=== PATIENT | female | born 1975 | race Caucasian/White ===

== ENCOUNTER 2023-03-04 16:56 | Inpatient (IN) | payer BC, SELFPAY ==
[2023-03-04] VITALS (40 sets, daily range): BP systolic 133–204; BP diastolic 80–157; PULSE 95–119; RESP 17–33; TEMP 36.6–37; O2SAT 91–100; BMI 43.9
--- NOTE | 2023-03-04 17:16 | XRR_ITS ---
PROCEDURE INFORMATION: Exam: XR Chest Exam date and time: 03/04/2023 5:33 PM Age: 47 years old Clinical indication: Shortness of breath; Additional info: SOB TECHNIQUE: Imaging protocol: Radiologic exam of the chest. Views: 1 view. COMPARISON: CR XR chest 1V [id number] 04/14/2019 5:46 AM FINDINGS: Lungs: New small streaky right basilar opacity which is likely atelectasis however follow-up should be obtained if there is a concern for developing pneumonia. One or 2 calcified pulmonary granulomas are again noted in the right upper lung zone, unchanged. Pleural spaces: Unremarkable. No pleural effusion. No pneumothorax. Heart/Mediastinum: No cardiomegaly. Bones/joints: No acute findings. XR/XR chest 1V portable [id number] IMPRESSION: Small right basilar streaky opacity. See discussion above.
--- NOTE | 2023-03-04 17:19 | W.ED.SOB ---
HPI - SOB/Dyspnea General: Chief Complaint: Shortness of Breath/Dyspnea Stated Complaint: RESPIRATORY DISTRESS Time Seen by Provider: 03/04/23 17:00 Source: patient and EMS Mode of arrival: EMS Limitations: no limitations History of Present Illness: HPI Narrative: 47-year-old female who has a long history of COPD she states that over the last 3 days she been having worsening shortness of breath along with wheezing states today got much worse went to clinic was hypoxic she is on 3 L of oxygen currently she did receive albuterol and Solu-Medrol in route she still has wheezing along with some tachypnea states she has pain in her chest 2 she feels like from her cough and breathing she denies any vomiting or diarrhea Associated symptoms: Deny abdominal pain, chest pain, fever(s), nausea or vomiting Review of Systems Const: Denies: fever(s), chills, body aches or change in appetite Eyes: Denies: eye discomfort ENMT: Denies: throat pain or dental pain Card: Denies: chest pain Resp: Reports: dyspnea, non-productive cough and wheezing GI: Denies: abdominal pain, nausea, vomiting or diarrhea : Denies: dysuria Musc: Denies: neck pain or back pain Skin/Breast: Denies: rash Neuro: Denies: headache(s) Psych: Denies: depression Khoa/Lymph: Denies: easy bruising All/Imm: Denies: urticaria PFSH ED PFSH: Medical History (Updated 03/04/23 @ 19:39 by Smooth Lazo MD) COPD (chronic obstructive pulmonary disease) Social History (Updated 03/04/23 @ 17:19 by Smooth Lazo MD) Substance/Drug Use: never Physical Exam Const: COMMON NORMALS: patient oriented x3 GENERAL APPEARANCE: in distress and ill appearing HENMT: COMMON NORMALS: normocephalic and atraumatic HEAD & SCALP: normocephalic and atraumatic Eye: COMMON NORMALS: Equal, round and reactive pupils present and EOMs intact bilaterally PUPIL: Yes Equal, round and reactive pupils present Neck/C-Spine: COMMON NORMALS: full ROM and supple Chest: COMMONS NORMALS: normal inspection of the chest and normal palpation of entire chest wall Resp: EFFORT & INSPECTION: Yes tachypneic, Yes respiratory distress and Yes labored AUSCULTATION: wheezes Cardio: COMMON NORMALS: regular rhythm and No murmurs present (Cardio) RATE: tachycardic RHYTHM: regular rhythm GI: COMMON NORMALS: Normal to inspection, nondistended, normoactive bowel sounds present, Soft to palpation, non-tender and no masses PALPATION: Yes Soft to palpation Extremity: COMMON NORMALS: normal to inspection and full ROM Neuro: COMMON NORMALS: patient oriented x3, moves all extremities and no focal motor deficits Psych: COMMON NORMALS: mental status grossly normal, Normal thought process present and cooperative THOUGHT PROCESS: Normal thought process present Skin: COMMON NORMALS: no rashes or lesions noted and no wounds GENERAL SKIN EXAM: no rashes or lesions noted Course Vital Signs: Vital signs: Vital Signs Temperature 98.6 F 03/04/23 17:03 Pulse Rate 100 03/04/23 18:40 Respiratory Rate 25 H 03/04/23 18:40 Blood Pressure 204/157 03/04/23 18:40 Pulse Oximetry 95 03/04/23 18:40 Oxygen Delivery Me thod Nasal Cannula 03/04/23 18:40 Oxygen Flow Rate 2 03/04/23 18:40 MDM - SOB/Dyspnea Medical Decision Making Patient presents for COPD exacerbation along with hypoxia she has a possible right-sided pneumonia as well. Patient given breathing treatments she has had some slight improvement but still requiring oxygen I spoke to the hospitalist will admit at this time. Lab Data 03/04/23 17:20 03/04/23 17:20 Labs/Radiology: Radiology Impressions Chest X-Ray 03/04/23 17:16 IMPRESSION: Small right basilar streaky opacity. See discussion above. Laboratory Results WBC 15.1 10^3/uL (4.0-10.0) H 03/04/23 17:20 RBC 5.29 10^6/uL (4.1-5.3) 03/04/23 17:20 Hgb 15.8 g/dL (11.5-15.3) H 03/04/23 17:20 Hct 48.2 % (37.0-47.0) H 03/04/23 17:20 MCV 91.1 fl (81-99) 03/04/23 17:20 MCH 29.9 pg (28.0-34.0) 03/04/23 17:20 MCHC 32.8 g/dL (30.0-36.0) 03/04/23 17:20 RDW 12.7 % (12.1-15.1) 03/04/23 17:20 Plt Count 380 10^3/cmm (130-400) 03/04/23 17:20 MPV 10.2 fL (7.4-10.4) 03/04/23 17:20 Neut % (Auto) 66.6 % 03/04/23 17:20 Lymph % (Auto) 17.6 % 03/04/23 17:20 [place] % (Auto) 5.3 % 03/04/23 17:20 Eos % (Auto) 9.7 % 03/04/23 17:20 Baso % (Auto) 0.5 % 03/04/23: Neut # (Auto) 10.03 10^3/uL (1.8-7.7) H 03/04/23 17:20 Lymph # (Auto) 2.7 10^3/uL (0.8-4.8) 03/04/23 17:20 [place] # (Auto) 0.8 10^3/uL (0.2-0.9) 03/04/23 17:20 Eos # (Auto) 1.5 10^3/uL (0.0-0.8) H 03/04/23 17:20 Baso # (Auto) 0.1 10^3/uL (0.0-0.1) 03/04/23 17:20 Nucleated RBC % (auto) 0 % 03/04/23: Nucleated RBCs # 0.0 /100WBC 03/04/23 17: Specimen Type Arterial 03/04/23 17:44 Sample Site Radial, left 03/04/23 17:44 ABG pH 7.37 (7.35-7.45) 03/04/23 17:44 ABG pCO2 38.6 mmHg (35-45) 03/04/23 17:44 ABG pO2 69.0 mmHg (80.0-100.0) L 03/04/23 17:44 ABG HCO3 22.1 mmol/L (22-26) 03/04/23:44 ABG Base Excess -2.9 mmol/L (-2.0-2.0) L 03/04/23 17:44 Kenny Test Pos 03/04/23 17:44 Hematocrit 51.0 % (37-47) H 03/04/23 17:44 Hgb O2 Saturation 93.2 % (95-100) L 03/04/23 17:44 Carboxyhemoglobin 1.4 %THgb (0.4-20.1) 03/04/23 17:44 Methemoglobin 0.6 % (0.4-1.5) 03/04/23 17:44 Total Hemoglobin 16.7 g/dL (12-16) H 03/04/23 17:44 O2 Delivery Device Nc 03/04/23 17:44 O2 Liters/Min 3.0 % 03/04/23 17:44 Patient Registration Representative ID [email or web address] 03/04/23 17:44 Sodium 133 mmol/L (136-145) L 03/04/23 17:20 Potassium 4.4 mmol/L (3.5-5.1) 03/04/23 17:20 Chloride 98 mmol/L (98-107) 03/04/23 17:20 Carbon Dioxide 23 mmol/L (22-29) 03/04/23 17:20 Anion Gap 16.4 (5-19) 03/04/23 17:20 BUN 7 mg/dL (6-20) 03/04/23 17:20 Creatinine 0.5 mg/dL (0.5-0.9) 03/04/23 17:20 GFR Calculation 132.8 mL/min (90-130) H 03/04/23 17:20 Glucose 90 mg/dL (65-115) 03/04/23 17:20 Calculated Osmolality 274 mOsm/kg (285-295) L 03/04/23 17:20 Calcium 9.2 mg/dL (8.5-10.5) 03/04/23 17:20 Total Bilirubin 0.7 mg/dL (0.15-1.2) 03/04/23 17:20 AST 22 U/L (0-32) 03/04/23 17:20 ALT 20 U/L (0-33) 03/04/23 17:20 Alkaline Phosphatase 97 U/L (35-105) 03/04/23 17:20 Troponin T Baseline 8 ng/L (0-10) 03/04/23 17:20 NT-Pro-B Natriuret Pep 144 pg/mL (0-125) H 03/04/23 17:20 Total Protein 6.9 g/dL (6.6-8.7) 03/04/23 17:20 Albumin 4.3 g/dL (3.5-5.2) 03/04/23 17:20 Globulin 2.6 g/dL (1.3-4.6) 03/04/23 17:20 Influenza Type A Ag negative (Negative) 03/04/23 17:23 Influenza Type B Ag negative (Negative) 03/04/23 17:23 SARS-CoV-2 Ag (Rapid) negative (Negative) 03/04/23 17:23 EKG Data EKG 1: I personally reviewed and interpreted this EKG as follows: EKG Interpretation Date: 03/04/23 EKG interpretation time: 17:28 Interpretation: sinus tach hr [address] or t wave abnormalities qrs 78 qtc 410 Discharge Plan Discharge Patient Disposition: Admitted As Inpatient Clinical Impression: Acute exacerbation of chronic obstructive airways disease, Acute respiratory failure with hypoxia Referrals: Debora Lucero RN [Primary Care Provider] - Coding Level of Care Code ED Tax Assessor for Chg Jarad
--- NOTE | 2023-03-04 17:22 | ECG_ITS ---
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 Measurements Intervals [place] Rate: 104 P: 46 AR: 136 QRS: 52 QRSD: 78 T: 54 QT: 350 QTc: 461 Interpretive Statements SINUS TACHYCARDIA SEPTAL MYOCARDIAL INFARCTION , PROBABLY OLD [40+ ms Q WAVE IN V1/V2] Compared to ECG 04/12/2019 02:23:30 Myocardial infarct finding now present Electronically Signed On 03-05-2023 15:04:02 CDT by Kaleb Guido M.D. [email or web address] [email or web address] mary[facility] [place] [facility].[email or web address]/store/OM/[id number]
[2023-03-04 17:41] LABS: Basophils # 0.1 10^3/uL (0.0-0.1); Basophils % 0.5 %; Eosinophils # 1.5 10^3/uL (0.0-0.8); Eosinophils % 9.7 %; Hematocrit 48.2 % (37.0-47.0); Hemoglobin 15.8 g/dL (11.5-15.3); Lymphocytes # 2.7 10^3/uL (0.8-4.8); Lymphocytes % 17.6 %; Mean Corpuscular HGB Conc 32.8 g/dL (30.0-36.0); Mean Corpuscular Hemoglobin 29.9 pg (28.0-34.0); Mean Corpuscular Volume 91.1 fl (81-99); Mean Platelet Volume 10.2 fL (7.4-10.4); Monocytes # 0.8 10^3/uL (0.2-0.9); Monocytes % 5.3 %; Neutrophils # 10.03 10^3/uL (1.8-7.7); Neutrophils % 66.6 %; Nucleated Red Blood Cells % 0 %; Platelet Count 380 10^3/cmm (130-400); Red Blood Count 5.29 10^6/uL (4.1-5.3); Red Cell Distribution Width 12.7 % (12.1-15.1); White Blood Count 15.1 10^3/uL (4.0-10.0)
[2023-03-04 17:56] LABS: ABG PCO2 38.6 mmHg (35-45); ABG PH Result 7.37 (7.35-7.45); Base Excess ABG -2.9 mmol/L (-2.0-2.0); Blood Gas Allen Test Pos; Blood Gas Sample Site Radial, left; Blood Gas Sample Type Arterial; Carboxyhemoglobin 1.4 %THgb (0.4-20.1); HCO3 ABG 22.1 mmol/L (22-26); HGB O2 Sat 93.2 % (95-100); Methemoglobin 0.6 % (0.4-1.5); Oxygen Device NC; Total Hemoglobin 16.7 g/dL (12-16)
[2023-03-04] MEDS: albuterol 2.5 mg/3 mL Neb 5 MG INHALATION (17:58)
[2023-03-04] MEDS: ipratropium 0.5 mg/2.5 mL Neb INHALATION (17:59)
[2023-03-04 18:02] LABS: Troponin(5th) Baseline 8 ng/L (0-10)
[2023-03-04 18:07] LABS: Alanine Aminotransferase 20 U/L (0-33); Albumin Level 4.3 g/dL (3.5-5.2); Alkaline Phosphatase 97 U/L (35-105); Aspartate Amino Transferase 22 U/L (0-32); Blood Urea Nitrogen 7 mg/dL (6-20); Calcium 9.2 mg/dL (8.5-10.5); Carbon Dioxide 23 mmol/L (22-29); Chloride 98 mmol/L (98-107); Globulin 2.6 g/dL (1.3-4.6); Glomerular Filtration Rate 132.8 mL/min (90-130); Glucose 90 mg/dL (65-115); NT Pro B Type Natriuretic Pept 144 pg/mL (0-125); Osmolality Calculated 274 mOsm/kg (285-295); Sodium 133 mmol/L (136-145); Total Bilirubin 0.7 mg/dL (0.15-1.2); Total Protein 6.9 g/dL (6.6-8.7)
[2023-03-04 18:09] LABS: SARS Covid-2 Antigen negative (Negative)
[2023-03-04 18:10] LABS: Influenza A by IFA negative (Negative); Influenza B by IFA negative (Negative)
[2023-03-04] MEDS: cefTRIAXone 1,000 MG in sodium chloride 0.9% (plus) 50 ML 100 MG IV (18:24)
[2023-03-04 18:33] LABS: Anion Gap 16.4 (5-19); Potassium 4.4 mmol/L (3.5-5.1)
[2023-03-04] MEDS: hyDRALAzine 20 mg/mL INJ 1 mL 10 MG IVP (19:04)
[2023-03-04] MEDS: azithromycin 500 MG in sodium chloride 0.9% 250 ML 250 MG IV (19:04)
--- NOTE | 2023-03-04 19:52 | P.HP_ITS ---
Providers/Chief Complaint Primary Care Provider: Debora Lucero Chief Complaint: RESPIRATORY DISTRESS History of Present Illness Crystal Leach is a 47 year old female with a past medical history of COPD, obesity, smoking history, hypertension who presents [facility] for complaints of wheezing, shortness of breath, fatigue, malaise for the last few days. Patient tells me that she is smoking, for the last 2 days she has been feeling increasingly short of breath, having wheezing, fatigue, malaise, no fevers, nonproductive cough. Over the last day her shortness of breath and wheezing has significantly worsened, no hemoptysis, no calf pain, no calf swelling, no recent surgeries. Review of Systems Const: Denies: fever(s) Eyes: Denies: change in vision Card: Denies: chest pain Resp: Reports: dyspnea and non-productive cough GI: Denies: abdominal pain : Denies: flank pain or difficulty voiding Musc: Denies: back pain Skin/Breast: Denies: rash Neuro: Denies: headache(s) Endo: Denies: polyuria Medications/Allergies Allergies Allergy/AdvReac Type Severity Reaction Status Date / Time aspirin Allergy ALGY-Hives Verified 03/04/23 17:17 Penicillins Allergy ALGY-Hives Verified 03/04/23 17:17 PFSH Acute PFSH: Medical History (Updated 03/04/23 @ 20:00 by Killian Hunter MD) COPD (chronic obstructive pulmonary disease) Obesity Surgical History (Updated 03/04/23 @ 19:55 by Killian Hunter MD) History of cholecystectomy Family History (Updated 03/04/23 @ 19:55 by Killian Hunter MD) Mother CAD (coronary artery disease) Lung cancer Father CAD (coronary artery disease) Pancreatic cancer Social History (Updated 03/04/23 @ 19:55 by Killian Hunter MD) Alcohol intake: never Vitals/I&O/Wt Last Vital Signs Temp 98.6 F 03/04/23 17:03 Pulse 100 03/04/23 18:40 Resp 25 H 03/04/23 18:40 BP 204/157 03/04/23 18:40 Pulse Ox 95 03/04/23 18:40 O2 Del Method Nasal Cannula 03/04/23 18:40 O2 Flow Rate 2 03/04/23 18:40 03/04/23 03/04/23 03/04/23 06:59 14:59 22:59 Intake Total 50 / 50 Balance 50 / 50 Weight last 48 hrs Weight 108.862 kg Physical Exam Const: COMMON NORMALS: no acute distress and patient oriented x3 HENMT: COMMON NORMALS: normocephalic Eye: COMMON NORMALS: Equal, round and reactive pupils present and EOMs intact bilaterally Neck/C-Spine: COMMON NORMALS: full ROM and no lymphadenopathy Lymph: LYMPHATIC: no lymphadenopathy noted Resp: COMMON NORMALS: normal respiratory effort, No retractions, No use of accessory muscles and clear to auscultation bilaterally AUSCULTATION: wheezes throughout Cardio: COMMON NORMALS: regular rhythm, S1 normal heart sound present and S2 normal heart sound present RATE: tachycardic RHYTHM: regular rhythm HEART SOUNDS: S1 normal heart sound present and S2 normal heart sound present GI: COMMON NORMALS: Normal to inspection, nondistended, normoactive bowel sounds present, Soft to palpation and non-tender : COMMON NORMALS: Yes no CVA tenderness Extremity: COMMON NORMALS: no pedal edema Neuro: COMMON NORMALS: patient oriented x3, CN's II-XII intact bilaterally, moves all extremities and no focal motor deficits Psych: COMMON NORMALS: mental status grossly normal Data 03/04/23 17:20 03/04/23 17:20 Micro: Microbiology 03/04/23 18:07 Blood Culture - Preliminary Blood SPECIMEN COLLECTED 03/04/23 18:13 Blood Culture - Preliminary Blood SPECIMEN COLLECTED Other data: I personally reviewed chest x-ray, small right basilar opacity concerning for pneumonia Personally reviewed EKG, sinus tachycardia, no acute ST-T wave changes A&P Assessment and plan (1) Acute exacerbation of chronic obstructive airways disease: (2) Acute respiratory failure with hypoxia: (3) COPD (chronic obstructive pulmonary disease): (4) Hypertensive urgency: (5) Pneumonia: (6) Smoker: (7) Sinus tachycardia: Plan Acute hypoxic respiratory failure -Secondary to pneumonia -COPD exacerbation Plan -Admit to general medical floors -DuoNeb treatments -Budesonide -Solu-Medrol -Oxygen therapy -Respiratory therapy eval -Monitor respiratory status closely -Telemetry monitoring -Continue Rocephin, azithromycin Pneumonia -Sputum cultures, blood cultures COPD exacerbation Active smoker, smoking cessation counseling Sinus tachycardia, serial EKGs, serial troponins, telemetry monitoring Hypertensive urgency -Improved with hydralazine -Norvasc 10 mg once daily Obesity Full code Lovenox for DVT prophylaxis Attestations Medical Necessity Statement*: Patient requires hospitalization, inpatient, greater than 2 midnights, for COPD exacerbation, pneumonia, acute respiratory failure, hypertensive urgency Diagnoses Acute exacerbation of chronic obstructive airways disease J44.1 Acute respiratory failure with hypoxia J96.01 COPD (chronic obstructive pulmonary disease) J44.9 Hypertensive urgency I16.0 Pneumonia J18.9 Smoker F17.200 Sinus tachycardia R00.0
--- NOTE | 2023-03-04 20:37 | PC.NURSE ---
Expiratory wheezing noted upon anterior and posterior auscultation. Patient on 3L nasal cannula and states that wheezing/shortness of breath is her baseline. Respiratory was contacted for breathing treatment.
[2023-03-04 21:05] LABS: D Dimer 0.34 ug/mIFEU (0-0.59)
[2023-03-04 21:22] LABS: Thyroid Stimulating Hormone 0.86 uIU/mL (0.27-4.20)
[2023-03-04 21:24] LABS: Estmated Average Glucose 111; Hemoglobin A1C 5.5 % (4.0-6.0)
[2023-03-04] MEDS: pantoprazole 40 mg SDV IVP (23:04)
[2023-03-04] MEDS: enoxaparin 40 mg/0.4 mL Syringe SUBCUT (23:04)
[2023-03-04] MEDS: amlodipine 10 mg Tablet PO (23:05)
[2023-03-04 23:32] LABS: Troponin 5 6HR Delta -2 ng/L (0-12)
[2023-03-04] MEDS: ipratropium-albuterol 3 mL Neb INHALATION (23:42)
[2023-03-04] MEDS: budesonide 0.5 mg/2 mL Neb INHALATION (23:42)
[2023-03-05] VITALS (19 sets, daily range): BP systolic 101–139; BP diastolic 62–98; PULSE 98–110; RESP 18–25; TEMP 36.6–36.8; O2SAT 93–98
[2023-03-05 06:00] LABS: Basophils % 0.1 %; Hematocrit 49.7 % (37.0-47.0); Hemoglobin 16.3 g/dL (11.5-15.3); Lymphocytes # 1.3 10^3/uL (0.8-4.8); Lymphocytes % 15.2 %; Mean Corpuscular HGB Conc 32.8 g/dL (30.0-36.0); Mean Corpuscular Hemoglobin 29.9 pg (28.0-34.0); Mean Corpuscular Volume 91.2 fl (81-99); Mean Platelet Volume 10.8 fL (7.4-10.4); Monocytes # 0.1 10^3/uL (0.2-0.9); Monocytes % 1.2 %; Neutrophils # 6.94 10^3/uL (1.8-7.7); Neutrophils % 83.3 %; Nucleated Red Blood Cells % 0 %; Platelet Count 407 10^3/cmm (130-400); Red Blood Count 5.45 10^6/uL (4.1-5.3); Red Cell Distribution Width 12.7 % (12.1-15.1); White Blood Count 8.3 10^3/uL (4.0-10.0)
[2023-03-05 06:14] LABS: Anion Gap 17.8 (5-19); Blood Urea Nitrogen 11 mg/dL (6-20); C Reactive Protein 14.9 mg/L (0.0-4.9); Calcium 9.5 mg/dL (8.5-10.5); Carbon Dioxide 22 mmol/L (22-29); Chloride 100 mmol/L (98-107); Glomerular Filtration Rate 132.8 mL/min (90-130); Glucose 132 mg/dL (65-115); Osmolality Calculated 281 mOsm/kg (285-295); Potassium 4.8 mmol/L (3.5-5.1); Sodium 135 mmol/L (136-145)
[2023-03-05 06:29] LABS: Slide Review Slide Review Perform
[2023-03-05] MEDS: ipratropium-albuterol 3 mL Neb INHALATION ×4 (07:33→20:45)
[2023-03-05] MEDS: budesonide 0.5 mg/2 mL Neb INHALATION ×2 (07:34→20:44)
[2023-03-05] MEDS: amlodipine 10 mg Tablet PO (08:15)
[2023-03-05] MEDS: acetaminophen 325 mg Tablet 650 MG PO (08:17)
[2023-03-05] MEDS: albuterol 2.5 mg/3 mL Neb INHALATION (14:01)
--- NOTE | 2023-03-05 14:17 | P.PN_ITS ---
Subjective Subjective: Continues to have significant wheezing today. She is also having bouts of cough which are leading to chest discomfort. On examination today she has diffuse bilateral wheezing not relieved by DuoNeb inhalation that she had around an hour ago. Medications: Reviewed: Yes Vitals/I&O/Wt Last Vital Signs Temp 98 F 03/05/23 12:00 Pulse 105 H 03/05/23 14:01 Resp 22 H 03/05/23 14:01 BP 130/84 03/05/23 12:00 Pulse Ox 95 03/05/23 14:01 O2 Del Method Nasal Cannula 03/05/23 14:01 O2 Flow Rate 3 03/05/23 14:01 03/04/23 03/05/23 03/05/23 22:59 06:59 14:59 Intake Total 50 / 50 730 / 780 Output Total 1400 / 1400 Balance 50 / 50 730 / 780 -1400 / -1400 Weight last 48 hrs Weight 109.061 kg Weight 108.862 kg Physical Exam Narrative: General: No acute distress, AO x3 HEENT: PERRLA, pupils bilaterally equal and reactive, pallors not present Chest: Bilateral diffuse wheezing to auscultation CVS: S1-S2 regular, no murmurs, no tachycardia, no gallops, no rubs Abdomen: Soft, nontender, no organomegaly, bowel sounds present Neuro: No focal deficits, no facial deformity, AO x3, power 5/5 in all limbs Data 03/05/23 05:40 03/05/23 05:40 Micro: Microbiology 03/05/23 11:25 Bacterial Antigens - Final Urine,Clean Catch A&P Assessment and plan (1) Acute exacerbation of chronic obstructive airways disease: (2) Acute respiratory failure with hypoxia: (3) COPD (chronic obstructive pulmonary disease): (4) Hypertensive urgency: (5) Pneumonia: (6) Smoker: (7) Sinus tachycardia: Plan Acute hypoxic respiratory failure -Secondary to pneumonia and COPD exacerbation Plan -Admit to general medical floors -scheduled DuoNeb every 4 hrs and Budesonide BID -Solu-Medrol increase to 60 mg iv every 8 hrs from every 40mg 8 hrs -Oxygen therapy -Monitor respiratory status closely -Telemetry monitoring -Continue Rocephin, azithromycin - add tessalon pearls and acetaminophen/codeine for cough suppression -magnesium 1 g iv x1 now Low suspicion for PE given negative D-dimer Pneumonia -Sputum cultures, blood cultures pending , currently unable to expectorate COPD exacerbation: as above Active smoker, smoking cessation counseling Sinus tachycardia, serial EKGs, serial troponins, telemetry monitoring Hypertensive urgency -Improved with hydralazine -Norvasc 10 mg once daily Obesity Full code Lovenox for DVT prophylaxis Attestations Medical Necessity Statement*: Diffuse wheezing bilaterally, needs continuous [id number] nebulization, increase IV steroids, add magnesium and cough suppressants. Coding Level of Care Code Acute Code for Chg Fwd Moderate MDM includes number and complexity of problems actively addressed during encounter, amount and/or complexity of data reviewed/ordered and described risk of complication, morbidity or mortality of management as d ocumented Diagnoses Acute exacerbation of chronic obstructive airways disease J44.1 Acute respiratory failure with hypoxia J96.01 COPD (chronic obstructive pulmonary disease) J44.9 Hypertensive urgency I16.0 Pneumonia J18.9 Smoker F17.200 Sinus tachycardia R00.0
[2023-03-05] MEDS: guaiFENesin-dextromethorphan UDC 10 mL 5 ML PO ×2 (15:26→21:55)
[2023-03-05] MEDS: benzonatate 100 mg Capsule PO (15:26)
[2023-03-05] MEDS: sennosides-docusate Tablet 1 TAB PO (17:32)
[2023-03-05] MEDS: montelukast sodium 10 mg Tablet PO (17:32)
[2023-03-05] MEDS: cefTRIAXone 1,000 MG in sodium chloride 0.9% (plus) 50 ML 100 MG IV (17:32)
[2023-03-05] MEDS: azithromycin 500 MG in sodium chloride 0.9% 250 ML 250 MG IV (18:46)
[2023-03-05] MEDS: enoxaparin 40 mg/0.4 mL Syringe SUBCUT (21:52)
[2023-03-05] MEDS: pantoprazole 40 mg SDV IVP (22:07)
[2023-03-06] VITALS (20 sets, daily range): BP systolic 108–136; BP diastolic 62–84; PULSE 91–116; RESP 15–22; TEMP 36.4–36.8; O2SAT 90–97
[2023-03-06] MEDS: ipratropium-albuterol 3 mL Neb INHALATION ×5 (00:55→20:04)
[2023-03-06] MEDS: guaiFENesin-dextromethorphan UDC 10 mL 5 ML PO (05:35)
[2023-03-06 05:50] LABS: Basophils % 0.1 %; Hematocrit 50.3 % (37.0-47.0); Hemoglobin 16.5 g/dL (11.5-15.3); Lymphocytes # 1.6 10^3/uL (0.8-4.8); Lymphocytes % 8.1 %; Mean Corpuscular HGB Conc 32.8 g/dL (30.0-36.0); Mean Corpuscular Hemoglobin 30.3 pg (28.0-34.0); Mean Corpuscular Volume 92.5 fl (81-99); Mean Platelet Volume 10.3 fL (7.4-10.4); Monocytes # 0.2 10^3/uL (0.2-0.9); Neutrophils # 17.81 10^3/uL (1.8-7.7); Neutrophils % 90.2 %; Nucleated Red Blood Cells % 0 %; Platelet Count 441 10^3/cmm (130-400); Red Blood Count 5.44 10^6/uL (4.1-5.3); Red Cell Distribution Width 13.2 % (12.1-15.1); White Blood Count 19.7 10^3/uL (4.0-10.0)
[2023-03-06 06:14] LABS: Alanine Aminotransferase 17 U/L (0-33); Albumin Level 4.3 g/dL (3.5-5.2); Alkaline Phosphatase 81 U/L (35-105); Anion Gap 16.8 (5-19); Aspartate Amino Transferase 9 U/L (0-32); Blood Urea Nitrogen 19 mg/dL (6-20); C Reactive Protein 6.9 mg/L (0.0-4.9); Calcium 9.9 mg/dL (8.5-10.5); Carbon Dioxide 24 mmol/L (22-29); Chloride 100 mmol/L (98-107); Globulin 3.3 g/dL (1.3-4.6); Glomerular Filtration Rate 90.1 mL/min (90-130); Glucose 141 mg/dL (65-115); Magnesium 2.1 mg/dL (1.7-2.3); Osmolality Calculated 287 mOsm/kg (285-295); Potassium 4.8 mmol/L (3.5-5.1); Sodium 136 mmol/L (136-145); Total Bilirubin 0.2 mg/dL (0.15-1.2); Total Protein 7.6 g/dL (6.6-8.7)
[2023-03-06] MEDS: amlodipine 10 mg Tablet PO (08:24)
[2023-03-06] MEDS: sennosides-docusate Tablet 1 TAB PO ×2 (08:24→20:15)
[2023-03-06] MEDS: benzonatate 100 mg Capsule PO (15:38)
--- NOTE | 2023-03-06 17:37 | CTR_ITS ---
PROCEDURE INFORMATION: Exam: CTA Chest With Contrast Exam date and time: 03/06/2023 6:53 PM Age: 47 years old Clinical indication: Cough and hyperventilation and shortness of breath and tachypnea and wheezing; Smoker's cough; Additional info: Evalute for pe TECHNIQUE: Imaging protocol: Computed tomographic angiography of the chest with contrast. Sagittal and coronal reformatted images were created and reviewed. 3D rendering (Not supervised by radiologist): MIP and/or 3D reconstructed images were created by the technologist. Radiation optimization: All CT scans at this facility use at least one of these dose optimization techniques: automated exposure control; mA and/or kV adjustment per patient size (includes targeted exams where dose is matched to clinical indication); or iterative reconstruction. Contrast material: OMNI 350; Contrast volume: 100 ml; Contrast route: INTRAVENOUS (IV); REPORTING DATA: Count of CT and Cardiac NM exams in prior 12 months: This patient has received 0 known CTs and 0 known cardiac nuclear medicine studies in the 12 months prior to the current study. COMPARISON: CR (CHEST, ) 03/04/2023 5:33 PM RADIATION DOSE METRICS: Total DLP (mGy-cm): 913.44 FINDINGS: Pulmonary arteries: Evaluation of peripheral pulmonary arteries is limited secondary to the phase of contrast enhancement. No filling defects in the central pulmonary arteries to suggest a large pulmonary embolism. Aorta: No evidence for aortic aneurysm or aortic dissection. Trachea: Tracheobronchial structures are patent. Lungs: Lungs are clear bilaterally. No pulmonary parenchymal nodules or masses. Pleural spaces: No pneumothorax. No pleural effusion. Heart: No cardiomegaly. No pericardial effusion. Esophagus: The esophagus is unremarkable. Mediastinal space: No mediastinal hematoma. No pneumomediastinum. Lymph nodes: No lymphadenopathy. Liver: Diffuse, mildly decreased attenuation in the visualized liver. Findings are consistent with mild fatty infiltration. Gallbladder and bile ducts: Patient has had a previous cholecystectomy. No dilatation of the visualized bile ducts. Pancreas: The visualized pancreas is unremarkable. No pancreatic ductal dilatation. Spleen: The visualized spleen is unremarkable. Adrenal glands: The right and left adrenal glands are unremarkable. Kidneys and ureters: The visualized right and left kidneys are unremarkable. Bones/joints: Mild degenerative changes in the visualized spine. Soft tissues: No acute abnormality in the extrathoracic soft tissues. CT/CT angio chest PE protcl [id number] IMPRESSION: 1. Evaluation of peripheral pulmonary arteries is limited secondary to the phase of contrast enhancement. No filling defects in the central pulmonary arteries to suggest a large pulmonary embolism. 2. Mild fatty infiltration of the visualized liver. 3. Lungs are clear bilaterally. 4. Incidental/nonacute findings are listed in the report.
--- NOTE | 2023-03-06 18:12 | ECG_ITS ---
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 Measurements Intervals [place] Rate: 111 P: 50 VA: 136 QRS: 46 QRSD: 78 T: 38 QT: 300 QTc: 409 Interpretive Statements SINUS TACHYCARDIA SEPTAL MYOCARDIAL INFARCTION , PROBABLY OLD [40+ ms Q WAVE IN V1/V2] INTERPRETATION BASED ON A DEFAULT AGE OF 40 YEARS Compared to ECG 03/04/2023 17:28:09 No significant changes Electronically Signed On 03-08-2023 1:29:39 CDT by Chrissy Guevara M.D. [email or web address] grove [email or web address] hospital cleveland east.[employer]/store/NU/[id number] f
[2023-03-06 18:20] LABS: Glucose Point of Care 176 mg/dL (70-110)
[2023-03-06] MEDS: iohexol 350 mg/mL 500 mL Btl (per mL) IV (19:17)
[2023-03-06] MEDS: budesonide 0.5 mg/2 mL Neb INHALATION (20:04)
--- NOTE | 2023-03-06 20:08 | ECG_ITS ---
[facility] Test Date: 2023-03-06 Pat Name: Crystal Leach Department: Room: 259 Gender: Female Outpatient Scheduler: : 1975 Requested By: Killian Hunter Order Number: [id number] Reading MD: Chrissy Guevara M.D. Measurements Intervals [place] Rate: 102 P: 33 GA: 155 QRS: 35 QRSD: 78 T: 31 QT: 327 QTc: 427 Interpretive Statements Sinus tachycardia with a rate of 102 bpm Poor R wave progression. Possible old septal FL. Some nonspecific T wave changes. Electronically Signed On 03-08-2023 1:30:52 CDT by Chrissy Guevara M.D. [email or web address] hospitalNCTech/store/[id number]
--- NOTE | 2023-03-06 20:08 | USCV_ITS ---
Crystal Leach Age: 47 Gender: F : 1975 Exam Date: 03/06/2023 20:32 Ordering Phys: Killian Hunter MD Technologist: AJAY Exam Location: [facility] Indication: No history of DVT per patient. There is no lower extremity edema or erythema. HISTORY: No history of DVT per patient. There is no lower extremity edema or erythema. PROCEDURES: Venous duplex imaging was performed in bilateral lower extremities. The following venous structures were evaluated: common femoral vein, profunda vein, proximal portion of the greater saphenous vein, superficial femoral vein, and the popliteal vein. In addition, the posterior tibial and peroneal veins were evaluated. FINDINGS: Normal 2-D Doppler and augmentation and compressibility throughout the lower extremity venous structures. Additional imaging through the proximal calf veins also reveals no thrombus. Limited evaluation of the greater saphenous vein is patent with no thrombus. CONCLUSIONS No DVT bilateral lower extremities. Dr. Samantha Emery DO (Electronically Signed) Final Date: 07 March 2023 07:37 S
--- NOTE | 2023-03-06 20:09 | PC.NURSE ---
1900 - PT HAS EPISODE OF FEELING LIKE ELEPHANT IS SITTING ON CHEST. BP 155/89 O2 93%/2L/NC P121 BS176. EKG COMPLETED - NO CHANGES FROM PREVIOUS. FINDINGS ARE SINUS TACHYCARDIA AND AEPTAL MYOCARDIAL INFARCTION, PROBABLY OLD. TAKEN TO RADIOLOGY FOR CTA ORDERED BY MARIA VICTORIA. CTA INCONCLUSIVE , X2 ATTEMPTS. NOTIFIED BY TECH THAT IT IS 24HOUR WAIT TO TRY AGAIN. NOTIFIED DR. DE SOUZA. PT IS CALM AT 1999 , LAUGHING WITH STAFF. VS STABLE. NO PAIN. DR. DE SOUZA SAYS TO CONTINUE MONITORING TELE AND NOTIFY OF ANY NEW CHANGES.
[2023-03-06] MEDS: cefTRIAXone 1,000 MG in sodium chloride 0.9% (plus) 50 ML 100 MG IV (20:14)
[2023-03-06] MEDS: montelukast sodium 10 mg Tablet PO (20:15)
[2023-03-06] MEDS: pantoprazole 40 mg SDV IVP (20:15)
[2023-03-06] MEDS: enoxaparin 40 mg/0.4 mL Syringe SUBCUT (20:15)
[2023-03-06 20:44] LABS: D Dimer <= 0.27 ug/mIFEU (0-0.59)
[2023-03-06 21:01] LABS: Troponin(5th) Baseline 6 ng/L (0-10)
[2023-03-06 21:11] LABS: NT Pro B Type Natriuretic Pept 45 pg/mL (0-125)
[2023-03-06 22:24] LABS: Troponin 5 2HR Delta 0 ABS# (0-10)
--- NOTE | 2023-03-06 22:54 | PM.PN ---
Subjective Subjective: patient continues ot be short of breath, still with wheezing, symptomatically feels worse compared to yesterday, 02 requiremenst stable at 3lpm Medications: Reviewed: Yes Vitals/I&O/Wt Last Vital Signs Temp 98.2 F 03/06/23 20:28 Pulse 98 03/06/23 20:28 Resp 19 H 03/06/23 20:28 BP 125/84 03/06/23 20:28 Pulse Ox 94 03/06/23 20:28 O2 Del Method Nasal Cannula 03/06/23 20:04 O2 Flow Rate 2.5 03/06/23 20:04 03/06/23 03/06/23 03/06/23 06:59 14:59 22:59 Intake Total 490 / 1312 591 / 591 170 / 761 Output Total 600 / 2300 Balance -110 / -988 591 / 591 170 / 761 Weight last 48 hrs Weight 109.061 kg Physical Exam Narrative: General: No acute distress, AO x3 HEENT: PERRLA, pupils bilaterally equal and reactive, pallors not present Chest: Bilateral diffuse wheezing to auscultation CVS: S1-S2 regular, no murmurs, no tachycardia, no gallops, no rubs Abdomen: Soft, nontender, no organomegaly, bowel sounds present Neuro: No focal deficits, no facial deformity, AO x3, power 5/5 in all limbs Data 03/06/23 05:27 03/06/23 05:27 Micro: Microbiology 03/04/23 18:13 Blood Culture - Preliminary Blood 03/04/23 18:07 Blood Culture - Preliminary Blood A&P Assessment and plan (1) Acute exacerbation of chronic obstructive airways disease: (2) Acute respiratory failure with hypoxia: (3) COPD (chronic obstructive pulmonary disease): (4) Hypertensive urgency: (5) Pneumonia: (6) Smoker: (7) Sinus tachycardia: Plan Acute hypoxic respiratory failure -Secondary to pneumonia and COPD exacerbation Plan -Admit to general medical floors -scheduled DuoNeb every 4 hrs and Budesonide BID -Solu-Medrol increase to 60 mg iv every 8 hrs from every 40mg 8 hrs -Oxygen therapy -Monitor respiratory status closely -Telemetry monitoring -Continue Rocephin, azithromycin - add tessalon pearls and acetaminophen/codeine for cough suppression -magnesium 1 g iv x1 now Low suspicion for PE given negative D-dimer Pneumonia -Sputum cultures, blood cultures pending , currently unable to expectorate COPD exacerbation: as above Active smoker, smoking cessation counseling Sinus tachycardia, serial EKGs, serial troponins, telemetry monitoring Hypertensive urgency -Improved with hydralazine -Norvasc 10 mg once daily Obesity Full code Lovenox for DVT prophylaxis Plan for today ; symptomatically feels worse today, still with significant wheezing, increase iv steroids, check CTA to evalute for PE Attestations Medical Necessity Statement*: increase iv steroids, check CTA Coding Level of Care Code Acute Code for Chg Fwd Diagnoses Acute exacerbation of chronic obstructive airways disease J44.1 Acute respiratory failure with hypoxia J96.01 COPD (chronic obstructive pulmonary disease) J44.9 Hypertensive urgency I16.0 Pneumonia J18.9 Smoker F17.200 Sinus tachycardia R00.0
[2023-03-06] MEDS: azithromycin 500 MG in sodium chloride 0.9% 250 ML 250 MG IV (22:55)
[2023-03-07] VITALS (11 sets, daily range): BP systolic 118–126; BP diastolic 76–85; PULSE 85–108; RESP 16–20; TEMP 36.6–36.8; O2SAT 92–95
[2023-03-07] MEDS: ipratropium-albuterol 3 mL Neb INHALATION ×3 (00:29→11:13)
[2023-03-07 02:25] LABS: Basophils % 0.1 %; Hematocrit 46.7 % (37.0-47.0); Hemoglobin 15.2 g/dL (11.5-15.3); Lymphocytes # 1.8 10^3/uL (0.8-4.8); Lymphocytes % 10.6 %; Mean Corpuscular HGB Conc 32.5 g/dL (30.0-36.0); Mean Corpuscular Hemoglobin 30.1 pg (28.0-34.0); Mean Corpuscular Volume 92.5 fl (81-99); Mean Platelet Volume 10.2 fL (7.4-10.4); Monocytes # 0.5 10^3/uL (0.2-0.9); Monocytes % 2.8 %; Neutrophils # 14.67 10^3/uL (1.8-7.7); Neutrophils % 85.8 %; Nucleated Red Blood Cells % 0 %; Platelet Count 414 10^3/cmm (130-400); Red Blood Count 5.05 10^6/uL (4.1-5.3); White Blood Count 17.1 10^3/uL (4.0-10.0)
--- NOTE | 2023-03-07 02:44 | ECG_ITS ---
[facility] Test Date: 2023-03-07 Pat Name: Crystal Leach Department: Room: 259 Gender: Female [employer] Records Clerk: : 1975 Requested By: Killian Hunter Order Number: [id number] Ame MD: Chrissy Guevara M.D. Measurements Intervals [place] Rate: 96 P: 34 FL: 153 QRS: 35 QRSD: 86 T: 30 QT: 340 QTc: 432 Interpretive Statements SINUS RHYTHM SEPTAL MYOCARDIAL INFARCTION , PROBABLY OLD [40+ ms Q WAVE IN V1/V2] Compared to ECG 03/06/2023 21:08:21 Sinus tachycardia no longer present Myocardial infarct finding still present Electronically Signed On 03-08-2023 22:14:16 CDT by Chrissy Guevara M.D. [id number]
[2023-03-07 02:50] LABS: Alanine Aminotransferase 15 U/L (0-33); Albumin Level 3.8 g/dL (3.5-5.2); Alkaline Phosphatase 70 U/L (35-105); Anion Gap 15.6 (5-19); Aspartate Amino Transferase 9 U/L (0-32); Blood Urea Nitrogen 18 mg/dL (6-20); Calcium 9.1 mg/dL (8.5-10.5); Carbon Dioxide 22 mmol/L (22-29); Chloride 102 mmol/L (98-107); Glomerular Filtration Rate 107.6 mL/min (90-130); Glucose 196 mg/dL (65-115); Osmolality Calculated 287 mOsm/kg (285-295); Potassium 4.6 mmol/L (3.5-5.1); Sodium 135 mmol/L (136-145); Total Bilirubin 0.2 mg/dL (0.15-1.2); Total Protein 6.8 g/dL (6.6-8.7)
[2023-03-07 03:01] LABS: Troponin 5 6HR Delta 0 ng/L (0-12)
[2023-03-07] MEDS: guaiFENesin-dextromethorphan UDC 10 mL 5 ML PO (03:47)
[2023-03-07] MEDS: budesonide 0.5 mg/2 mL Neb INHALATION (07:31)
[2023-03-07] MEDS: amlodipine 10 mg Tablet PO (08:29)
[2023-03-07] MEDS: sennosides-docusate Tablet 1 TAB PO (08:30)
--- NOTE | 2023-03-07 17:34 | PM.DCS ---
Discharge Providers Date of Admission: 03/04/23 20:04 Date of Discharge: March 07, 2023 Attending Provider at Admission: Killian Hunter MD Attending Provider at Discharge: Amberly Friedman MD Primary Care Provider: Debora Lucero Diagnoses at Discharge Discharge Diagnosis (1) Acute exacerbation of chronic obstructive airways disease: Status: Acute (2) Acute respiratory failure with hypoxia: Status: Acute (3) COPD (chronic obstructive pulmonary disease): Status: Acute (4) Hypertensive urgency: Status: Acute (5) Pneumonia: Status: Acute (6) Smoker: Status: Acute (7) Sinus tachycardia: Status: Acute Reason for Visit Reason for Visit: RESPIRATORY DISTRESS Hospital Course Hospital Course Crystal Leach is a 47 year old female with a past medical history of COPD, obesity, smoking history, hypertension who presents [facility] for complaints of wheezing, shortness of breath, fatigue, malaise for the last few days.? Patient tells me that she is smoking, for the last 2 days she has been feeling increasingly short of breath, having wheezing, fatigue, malaise, no fevers, nonproductive cough.? Over the last day her shortness of breath and wheezing has significantly worsened, no hemoptysis, no calf pain, no calf swelling, no recent surgeries. She was admitted to the hospital and managed for acute on chronic hypoxic respiratory failure secondary to pneumonia and COPD exacerbation. She was treated with IV steroids Solu-Medrol, oxygen therapy, received nebulizations [id number] with DuoNeb and budesonide. Additionally she also received antibiotics azithromycin and Rocephin. CTA was performed due to persisting dyspnea and was negative for PE on March 06, 2023. Patient felt symptomatically improved on the morning of March 07, 2023 and is being discharged home with a short steroid taper and recommendations to continue nebulized DuoNeb and budesonide. Patient states that she has inhalers Spiriva and Symbicort at home which she uses every day. For now asked to continue nebulization and once feeling symptomatically improved to change to her inhalers. Additionally referral is provided to outpatient pulmonology for management of COPD over long-term. Physical Exam Narrative: General: No acute distress, AO x3 HEENT: PERRLA, pupils bilaterally equal and reactive, pallors not present Chest: Normal vesicular breath sounds, no added sounds, equal good air entry bilaterally CVS: S1-S2 regular, no murmurs, no tachycardia, no gallops, no rubs Abdomen: Soft, nontender, no organomegaly, bowel sounds present Neuro: No focal deficits, no facial deformity, AO x3, power 5/5 in all limbs Extremities: Healthy surgical dressing present on the right hip, mild tenderness, soft no erythema. Discharge Data Studies Completed and Pending Completed Studies During Hospitalization Category Date Time Status CTA PE [CT angio chest PE protcl [id number]] Routine Cat Scan 03/06/23 17:37 Completed XR chest 1V portable [id number] Stat Exams 03/04/23 17:16 [place] [id number] Routine Ultrasound 03/06/23 20:08 Completed Pending at discharge Category Date Time Status Blood Cultures ([facility]) Routine Lab 03/04/23 18:07 Results Blood Cultures ([facility]) Routine Lab 03/04/23 18:13 Results CV. echo complete* [id number] Routine Ultrasound 03/07/23 21:28 Taken Radiology Impressions Chest X-Ray 03/04/23 17:16 IMPRESSION: Small right basilar streaky opacity. See discussion above. Chest CTA 03/06/23 17:37 IMPRESSION: 1. Evaluation of peripheral pulmonary arteries is limited secondary to the phase of contrast enhancement. No filling defects in the central pulmonary arteries to suggest a large pulmonary embolism. 2. Mild fatty infiltration of the visualized liver. 3. Lungs are clear bilaterally. 4. Incidental/nonacute findings are listed in the report. Laboratory Results WBC 17.1 10^3/uL (4.0-10.0) H 03/07/23 02:07 RBC 5.05 10^6/uL (4.1-5.3) 03/07/23 02:07 Hgb 15.2 g/dL (11.5-15.3) 03/07/23 02:07 Hct 46.7 % (37.0-47.0) 03/07/23 02:07 MCV 92.5 fl (81-99) 03/07/23 02:07 MCH 30.1 pg (28.0-34.0) 03/07/23 02:07 MCHC 32.5 g/dL (30.0-36.0) 03/07/23 02:07 RDW 13.0 % (12.1-15.1) 03/07/23 02:07 Plt Count 414 10^3/cmm (130-400) H 03/07/23 02:07 MPV 10.2 fL (7.4-10.4) 03/07/23 02:07 Neut % (Auto) 85.8 % 03/07/23 02:07 Lymph % (Auto) 10.6 % 03/07/23 02:07 Jenkins % (Auto) 2.8 % 03/07/23 02:07 Eos % (Auto) 0.0 % 03/07/23 02:07 Baso % (Auto) 0.1 % 03/07/23 02:07 Neut # (Auto) 14.67 10^3/uL (1.8-7.7) H 03/07/23 02:07 Lymph # (Auto) 1.8 10^3/uL (0.8-4.8) 03/07/23 02:07 Jenkins # (Auto) 0.5 10^3/uL (0.2-0.9) 03/07/23 02:07 Eos # (Auto) 0.0 10^3/uL (0.0-0.8) 03/07/23 02:07 Baso # (Auto) 0.0 10^3/uL (0.0-0.1) 03/07/23 02:07 Nucleated RBC % (auto) 0 % 03/07/23 02:07 Nucleated RBCs # 0.0 /100WBC 03/07/23 02:07 D-Dimer <= 0.27 ug/mIFEU (0-0.59) 03/06/23 20:21 Specimen Type Arterial 03/04/23 17:44 Sample Site Radial, left 03/04/23 17:44 ABG pH 7.37 (7.35-7.45) 03/04/23 17:44 ABG pCO2 38.6 mmHg (35-45) 03/04/23 17:44 ABG pO2 69.0 mmHg (80.0-100.0) L 03/04/23 17:44 ABG HCO3 22.1 mmol/L (22-26) 03/04/23 17:44 ABG Base Excess -2.9 mmol/L (-2.0-2.0) L 03/04/23 17:44 Kenny Test Pos 03/04/23 17:44 Hematocrit 51.0 % (37-47) H 03/04/23 17:44 Hgb O2 Saturation 93.2 % (95-100) L 03/04/23 17:44 Carboxyhemoglobin 1.4 %THgb (0.4-20.1) 03/04/23 17:44 Methemoglobin 0.6 % (0.4-1.5) 03/04/23 17:44 Total Hemoglobin 16.7 g/dL (12-16) H 03/04/23 17:44 O2 Delivery Device Nc 03/04/23 17:44 O2 Liters/Min 3.0 % 03/04/23 17:44 Chief Electrician ID [email or web address] 03/04/23 17:44 Sodium 135 mmol/L (136-145) L 03/07/23 02:07 Potassium 4.6 mmol/L (3.5-5.1) 03/07/23 02:07 Chloride 102 mmol/L (98-107) 03/07/23 02:07 Carbon Dioxide 22 mmol/L (22-29) 03/07/23 02:07 Anion Gap 15.6 (5-19) 03/07/23 02:07 BUN 18 mg/dL (6-20) 03/07/23 02:07 Creatinine 0.6 mg/dL (0.5-0.9) 03/07/23 02:07 GFR Calculation 107.6 mL/min (90-130) 03/07/23 02:07 Glucose 196 mg/dL (65-115) H 03/07/23 02:07 POC Glucose 176 mg/dL (70-110) H 03/06/23 18:18 Estimat Average Glucose 111 03/04/23 17:20 Hemoglobin A1c 5.5 % (4.0-6.0) 03/04/23 17:20 Calculated Osmolality 287 mOsm/kg (285-295) 03/07/23 02:07 Calcium 9.1 mg/dL (8.5-10.5) 03/07/23 02:07 Magnesium 2.1 mg/dL (1.7-2.3) 03/06/23 05:27 Total Bilirubin 0.2 mg/dL (0.15-1.2) 03/07/23 02:07 AST 9 U/L (0-32) 03/07/23 02:07 ALT 15 U/L (0-33) 03/07/23 02:07 Alkaline Phosphatase 70 U/L (35-105) 03/07/23 02:07 Troponin T Baseline 6 ng/L (0-10) 03/06/23 20:21 Troponin T 120 Minute 6.00 ng/L (0-10) 03/06/23 21:50 Delta Troponin T 0 ABS# (0-10) 03/06/23 21:50 Troponin T Hi Sens 6Hr 6.00 ng/L (0-10) 03/07/23 02:07 Troponin T Hi Sens 6Hr Delta 0 ng/L (0-12) 03/07/23 02:07 C-Reactive Protein 6.9 mg/L (0.0-4.9) H 03/06/23 05:27 NT-Pro-B Natriuret Pep 45 pg/mL (0-125) 03/06/23 20:21 Total Protein 6.8 g/dL (6.6-8.7) 03/07/23 02:07 Albumin 3.8 g/dL (3.5-5.2) 03/07/23 02:07 Globulin 3.0 g/dL (1.3-4.6) 03/07/23 02:07 TSH 0.86 uIU/mL (0.27-4.20) 03/04/23 17:20 Influenza Type A Ag negative (Negative) 03/04/23 17:23 Influenza Type B Ag negative (Negative) 03/04/23 17:23 SARS-CoV-2 Ag (Rapid) negative (Negative) 03/04/23 17:23 Vitals Last Vital Signs Temp 98.1 F 03/07/23 14:50 Pulse 98 03/07/23 14:50 Resp 18 03/07/23 10:52 BP 121/85 03/07/23 14:50 Pulse Ox 94 03/07/23 14:50 O2 Del Method Nasal Cannula 03/07/23 10:52 O2 Flow Rate 4 03/07/23 10:52 Discharge Plan Discharge Patient Disposition: Home Condition: Stable Prescriptions: New amlodipine 10 mg Tablet 10 mg PO DAILY 30 Days Qty: 30 0RF benzonatate 100 mg Capsule 100 mg PO TID PRN (Reason: COUGH (1ST)) 7 Days Qty: 21 0RF budesonide 0.5 mg/2 mL Suspension For Nebulization 0.5 mg inhalation BID.RESPIRATORY 30 Days Qty: 120 0RF levofloxacin 750 mg tablet 750 mg PO DAILY 4 Days Qty: 4 0RF prednisone 10 mg tablets,dose pack See Rx Instructions .ROUTE .COMPLEX Qty: 21 0RF Rx Instructions: orally per package directions ipratropium-albuterol 0.5 mg-3 mg(2.5 mg base)/3 mL solution for nebulization 3 ml inhalation Q6H 30 Days Qty: 180 0RF Continued montelukast 10 mg tablet 1 mg PO QPM albuterol sulfate 90 mcg/actuation HFA aerosol inhaler 2 puff INHALATION Q4H PRN (Reason: Shortness Of Breath Or Wheezing) fluticasone propionate 110 mcg/actuation Hfa Aerosol Inhaler 1 puff INHALATION BID Discontinued albuterol sulfate 2.5 mg /3 mL (0.083 %) solution for nebulization 2.5 mg inhalation TID Discharge Orders: Discharge Order (Routine); Ordered 03/07/23 Ordered By: Amberly Friedman Referrals: Datar,Salvatore Pineda MD [Physician] - (COPD ) Michelle Maguire FNP [Nurse Practitioner] - 03/14/23 8:30 am Discharge Diet: Usual diet Discharge Activity: Resume usual activity Patient Instructions: COPD, Benzonatate (By mouth) (Mary Aguilera), Benzonatate (By mouth), Prednisone (By mouth), Amlodipine (By mouth), Levofloxacin (By mouth), Ipratropium/Albuterol (By breathing), Levofloxacin (Into the eye), Opioid Safety Discharge Attestations Time Spent in Discharge Care*: greater than 30 min Quality Metrics Clinical Quality Measures [ No reported AMI, CVA or VTE this stay] Coding Level of Care Code Acute Code for [facility] Fwd Diagnoses Acute exacerbation of chronic obstructive airways disease J44.1 Acute respiratory failure with hypoxia J96.01 COPD (chronic obstructive pulmonary disease) J44.9 Hypertensive urgency I16.0 Pneumonia J18.9 Smoker F17.200 Sinus tachycardia R00.0
--- NOTE | 2023-03-07 21:28 | USCV_ITS ---
Crystal Leach Age: 47 Gender: F : 1975 Exam Date: 03/07/2023 03:06 Ordering Phys: Killian Hunter MD Technologist: AJAY Exam Location: [facility] [place] Indication: sob. No history of cardiac intervention per patient. BP: 116 / 72 HR: 86 Rhythm: Sinus Technical Quality: Adequate MEASUREMENTS (Male / Female) Normal Values 2D ECHO LV Diastolic Diameter PLAX 3.8 cm 4.2 - 5.9 / 3.9 - 5.3 cm LV Systolic Diameter PLAX 2.6 cm IVS Diastolic Thickness 1.4 cm 0.6 - 1.0 / 0.6 - 0.9 cm IVS Systolic Thickness 1.8 cm LVPW Diastolic Thickness 1.4 cm 0.6 - 1.0 / 0.6 - 0.9 cm LVPW Systolic Thickness 1.3 cm LVOT Diameter 2.2 cm LV Ejection Fraction 2D Teich 59.3 % LV Ejection Fraction MOD 2C 61.1 % LV Ejection Fraction 2C AL 62.7 % LA Diameter 3.4 cm LA Width 3.0 cm LA Height 4.9 cm RA Width 3.0 cm RA Height 4.1 cm Aorta at Sinotubular Diameter 3.0 cm IVC Diameter 0.9 cm M-MODE Aortic Annulus Diameter 2.8 cm LA Ao Ratio MM 1.1 MV E Point Septal Separation 0.3 cm DOPPLER AV Peak Velocity 135.0 cm/s LVOT Peak Velocity 97.0 cm/s AV Area Cont Eq vti 2.3 cm squared AV Area Cont Eq pk 2.8 cm squared MV Peak Velocity 121.0 cm/s MV Area PHT 4.5 cm squared Mitral E to A Ratio 0.9 MV E' Velocity 51.5 cm/s Mitral E to MV E' Ratio 10.0 Mitral E to LV E' Lateral Ratio 9.3 Mitral E to LV E' Septal Ratio 10.9 TR Peak Velocity 239.0 cm/s TR Peak Gradient 22.8 mmHg TV Peak E Velocity 43.0 cm/s Right Atrial Pressure 5.0 mmHg Pulmonary Artery Systolic Pressu 27.8 mmHg PV Peak Velocity 99.0 cm/s RV Acceleration Time 0.1 s RV Ejection Time 0.3 s RV AcT/ET 0.4 FINDINGS Left Ventricle Normal left ventricular size and systolic function, EF 63 %. No regional wall motion abnormalities. Mild left ventricular hypertrophy. Right Ventricle The right ventricle is normal in size and function. Right Atrium The right atrium is normal in size. Left Atrium The left atrium is normal in size. Mitral Valve No gross abnormalities noted Aortic Valve No gross abnormalities noted Tricuspid Valve Trace tricuspid valve regurgitation. Pulmonic Valve Trace pulmonary valve regurgitation. Pericardium No pericardial effusion. Aorta Normal aortic annulus size. IVC Normal inferior vena cava. CONCLUSIONS Normal left ventricular size and systolic function, EF 63 %. No regional wall motion abnormalities. Mild left ventricular hypertrophy. Trace pulmonary valve regurgitation. Trace tricuspid valve regurgitation. Estimated pulmonary artery peak systolic pressure 28 mmHg There is no pericardial effusion. There are no intracardiac masses. No similar previous studies are available for comparison Dr Chrissy Guevara MD [facility] (Electronically Signed) Final Date: 08 March 2023 01:17 S
== END 2023-03-07 14:52 | disposition home or self-care (01) | DRG 190 ==
LOC: ER 19:41 → MEDSURG 20:04
PROVIDERS: Admitting Provider Family Medicine; Emergency Provider Emergency Medicine; Visit Provider Student in an Organized Health Care Education/Training Program
DX: J44.1 Chronic obstructive pulmonary disease with (acute) exacerbation (principal); J18.9 Pneumonia, unspecified organism; Z68.41 Body mass index [BMI] 40.0-44.9, adult; J44.0 Chronic obstructive pulmonary disease with (acute) lower respiratory infection; E66.09 Other obesity due to excess calories; I10 Essential (primary) hypertension; F17.200 Nicotine dependence, unspecified, uncomplicated; Z79.51 Long term (current) use of inhaled steroids; I16.0 Hypertensive urgency
CPT/HCPCS: 36415; 36416; 36600; 71045; 71275; 80048; 80053; 82805; 82962; 83036; 83735; 83880; 84443; 84484; 85025; 85378; 86140; 86403; 87040; 87426; 87804; 93005; 93306; 93970; 94640; 94664; 94760; 96365; 96367; 96372; 96375; 99285; C9113; J0360; J0456; J0696; J1650; J2920; J2930; J3475; J7050; J7613; J7626; J7644; Q9967

== ENCOUNTER → 2023-05-27 17:00 | Outpatient (BNVA) | payer BC, MEDICAID, SELFPAY | PROVIDERS: Visit Provider Internal Medicine Pulmonary Disease | DX: J30.2 Other seasonal allergic rhinitis (principal) | CPT/HCPCS: 82785; 86003 ==